=== PATIENT | female | born 1935 | race Two or more races ===

== ENCOUNTER 2020-05-13 07:24 | Day surgery (SDC) | payer MEDICARE ==
[2020-05-13] MEDS ORDERED: SODIUM CHLORIDE 0.9% 1,000 ML IV SCH (08:00)
[2020-05-13] MEDS ORDERED: LIDOCAINE 1%, 10ML ONE (08:57)
[2020-05-13] MEDS ORDERED: NALOXONE 1 MG/ML, 2ML ONE (09:06)
[2020-05-13] MEDS ORDERED: FLUMAZENIL 0.1 MG/1 ML, 5ML ONE (09:06)
[2020-05-13] MEDS ORDERED: FENTANYL PF 100 MCG/2ML ONE (09:06)
[2020-05-13] MEDS ORDERED: MIDAZOLAM 1 MG/ML, 5ML ONE (09:06)
[2020-05-13] MEDS ORDERED: VISIPAQUE 270 MG/ML, 150ML BOTTLE ONE (10:08)
== END 2020-05-13 11:25 | disposition home or self-care (01) ==
LOC: OUT 07:24 → EDSTATUS 09:00 → OUT 11:25
PROVIDERS: ATTEND Radiology Diagnostic Radiology
DX: Z45.2 Encounter for adjustment and management of vascular access device (principal); I10 Essential (primary) hypertension; E03.9 Hypothyroidism, unspecified; H26.9 Unspecified cataract; D64.9 Anemia, unspecified; Z79.01 Long term (current) use of anticoagulants; Z79.890 Hormone replacement therapy; Z79.899 Other long term (current) drug therapy; Z86.711 Personal history of pulmonary embolism; Z86.73 Personal history of transient ischemic attack (TIA), and cerebral infarction without residual deficits; Z87.891 Personal history of nicotine dependence; Z82.49 Family history of ischemic heart disease and other diseases of the circulatory system
CPT/HCPCS: 37193; 99156; 99157; C1769; C1773; C1894; J2250; J3010; Q9966; 76937; J2310